=== PATIENT | female | born 1950 | race Asian ===

== ENCOUNTER 2020-05-28 10:27 | Outpatient (CLI) | payer BC, MEDICARE ==
--- NOTE | 2020-05-28 11:49 | Ultrasound Report ---
ULTRASOUND BREAST RIGHT LIMITED, 05/28/2020 CLINICAL INFORMATION / INDICATION: Nodular density in the right breast on screening mammography. TECHNIQUE: Targeted ultrasound evaluation was performed of the area of interest. COMPARISON: Bilateral mammography 05/16/20. FINDINGS: There is a 1.1 cm circumscribed, oval, mildly complex cystic nodule at the 10:00 position 8 cm from t he nipple. This corresponds to the site of the mammographically detected nodule. The lesion is wider than tall, demonstrates mild increased through transmission and demonstrates no internal vascularity on Doppler exam. No other abnormality is seen. IMPRESSION: 1.1 cm complex cyst in the right lateral breast corresponds to the mammographic finding. A follow-up right breast ultrasound in 6 months is recommended to document stability. Follow up recommendation: Short term follow up in 6 months. BI-RADS Category 3: Probably Benign. Followup in 6 months. A normal or "negative" report should not preclude biopsy or follow-up of a clinically suspicious find ing. Signer Name: Fareed Burch MD Signed: 05/28/2020 11:44 AM Workstation Name: [id number]
== END 2020-05-28 10:28 | disposition home or self-care (01) ==
LOC: SPVWC 10:27
PROVIDERS: ATTEND Surgery
DX: N60.01 Solitary cyst of right breast (principal)

== ENCOUNTER 2020-11-21 10:29 | Outpatient (CLI) | payer BC, MEDICARE ==
--- NOTE | 2020-11-21 11:52 | Ultrasound Report ---
EXAMINATION: Right Limited Breast Ultrasound, 11/21/2020 INDICATION: Short-term follow-up evaluation of the right breast. Six-month follow-up of right breast cyst. COMPARISON: Diagnostic mammogram, 05/16/2020. Right breast ultrasound, 05/28/2020 FINDINGS: Targeted ultrasound evaluation was performed of the area of interest. Sonographic evaluati on of the right breast at the 9:00 position 7 cm from the nipple again demonstrates the minimally com plicated oval cyst measuring 0.8 x 0.5 cm. This is unchanged from the previous study and continues to have a benign appearance. No suspicious solid mass or shadowing is visualized.. IMPRESSION: Follow up recommendation: Back to schedule. BI-RADS Category 2: Benign. Stable mildly complicated right breast cyst as described representing a benign finding. A normal or "negative" report should not preclude biopsy or follow-up of a clinically suspicious find ing. Signer Name: Clare Julien MD Signed: 11/21/2020 11:48 AM Workstation Name: [id number]
== END 2020-11-21 10:30 | disposition home or self-care (01) ==
LOC: SPVWC 10:29
PROVIDERS: ATTEND Surgery
DX: N60.01 Solitary cyst of right breast (principal)